=== PATIENT | female | born 1965 | race Caucasian/White ===

== ENCOUNTER 2016-04-30 14:49 | Emergency (ER) | payer BC ==
[~2016-04-30] VITALS: Ht 157.5 cm; Wt 64.5 kg
[2016-04-30 14:50] VITALS: BP 131/89; PULSE 68; RESP 12; TEMP 97.9; O2SAT 96
[2016-04-30] MEDS ORDERED: SYNT88TA PO (16:31)
--- NOTE | 2016-04-30 16:41 | PD ---
HPI Chief Complaint: Headache Time Seen by Provider: 16:41 Travel History International Travel<30 days: No Contact w/Intl Traveler<30days: No Traveled to known affect area: No History of Present Illness HPI 50-year-old female with history of hypothyroidism presents to emergency department for evaluation of an acute onset headache at 2 AM this morning during orgasm. She states that it started in the occipital aspect of her head and shot to the front. It was associated with nausea and vomiting. She states it was the worst headache of her life. She states she does not ever get headaches. Since that time she has had a lingering mild headache with mild nausea. No focal deficits or weakness. No chest tightness. No visual disturbances. She also reports some mild discomfort in her neck. She has no other symptoms to report. [facility] Past Medical History Thyroid Disease: Yes Tetanus Vaccination: > 5 Years Influenza Vaccination: Yes ?: Not Past Surgical History Abdominal Surgery: Yes (HERNIA) Gynecologic Surgery: Yes (HYSTERECTOMY) Hysterectomy: Yes (12/22) Tonsillectomy: Yes Social History Alcohol Use: No Tobacco Use: No Substance Use: No Allergies-Medications (Allergen,Severity, Reaction): Coded Allergies: No Known Allergies (Unverified , 04/30/16) Reported Meds & Prescriptions Reported Meds & Active Scripts Active Reported Synthroid (Levothyroxine Sodium) 88 Mcg Tab 88 Mcg PO DAILY Review of Systems Except as stated in HPI: all other systems reviewed are Neg Physical Exam Narrative GENERAL: Well-nourished female patient, in no acute distress SKIN: Warm and dry. HEAD: Atraumatic. Normocephalic. EYES: Pupils equal and round. No scleral icterus. No injection or drainage. ENT: No nasal bleeding or discharge. Mucous membranes pink and moist. NECK: Trachea midline. No JVD. CARDIOVASCULAR: Regular rate and rhythm. No murmur appreciated. RESPIRATORY: No accessory muscle use. Clear to auscultation. Breath sounds equal bilaterally. GASTROINTESTINAL: Abdomen soft, non-tender, nondistended. Hepatic and splenic margins not palpable. MUSCULOSKELETAL: No obvious deformities. No clubbing. No cyanosis. No edema. NEUROLOGICAL: Awake and alert. No obvious cranial nerve deficits. Motor grossly within normal limits. Normal speech. PSYCHIATRIC: Appropriate mood and affect; insight and judgment normal. Data Data Last Documented VS Vital Signs Date Time Temp Pulse Resp B/P Pulse Ox O2 Delivery O2 Flow Rate FiO2 04/30/16 17:24 67 18 145/81 99 Room Air 04/30/16 14:50 97.9 Orders Complete Blood Count With Diff (04/30/16 16:40) Basic Metabolic Panel (Bmp) (04/30/16 16:40) Coag Profile (04/30/16 16:40) Ct Brain W/O Iv Contrast(Rout) (04/30/16 ) Lidocaine Pf 1% Inj (Xylocaine-Mpf 1% In (04/30/16 18:00) Csf Cell Count + Differential (04/30/16 18:06) Glucose, Csf (04/30/16 18:06) Total Protein, Csf (04/30/16 18:06) Csf Culture And Gram Stain (04/30/16 18:06) Cta Brain W Iv Contrast W 3d (04/30/16 ) Ed Urine Pregnancytest Poc (04/30/16 18:32) Labs Laboratory Tests Test 04/30/16 15:50 White Blood Count 6.4 TH/MM3 Red Blood Count 5.00 MIL/MM3 Hemoglobin 14.4 GM/DL Hematocrit 41.8 % Mean Corpuscular Volume 83.4 FL Mean Corpuscular Hemoglobin 28.7 PG Mean Corpuscular Hemoglobin 34.4 % Concent Red Cell Distribution Width 12.2 % Platelet Count 264 TH/MM3 Mean Platelet Volume 7.6 FL Neutrophils (%) (Auto) 52.2 % Lymphocytes (%) (Auto) 37.9 % Monocytes (%) (Auto) 7.0 % Eosinophils (%) (Auto) 2.3 % Basophils (%) (Auto) 0.6 % Neutrophils # (Auto) 3.4 TH/MM3 Lymphocytes # (Auto) 2.4 TH/MM3 Monocytes # (Auto) 0.5 TH/MM3 Eosinophils # (Auto) 0.1 TH/MM3 Basophils # (Auto) 0.0 TH/MM3 CBC Comment DIFF FINAL Differential Comment Prothrombin Time 10.6 SEC Prothromb Time International 1.0 RATIO Ratio Activated Partial 20.7 SEC Thromboplast Time Sodium Level 137 MEQ/L Potassium Level 4.3 MEQ/L Chloride Level 102 MEQ/L Carbon Dioxide Level 27.9 MEQ/L Anion Gap 7 MEQ/L Blood Urea Nitrogen 16 MG/DL Creatinine 0.77 MG/DL Estimat Glomerular Filtration 79 ML/MIN Rate Random Glucose 88 MG/DL Calcium Level 8.9 MG/DL MDM Medical Decision Making Medical Screen Exam Complete: Yes Emergency Medical Condition: Yes Medical Record Reviewed: Yes Differential Diagnosis Postcoital headache versus migraine with or without aura versus intracranial hemorrhage versus vasospasm Narrative Course 50-year-old female presents to emergency department for evaluation. Workup was initiated in triage. Once a medical bed becomes spell, patient will be transferred and care assumed by that provider. Condition: Stable Lynsey Akbar Apr 30, 2016 16:41
[2016-04-30 17:20] LABS: AUTOMATED NEUTROPHIL # 3.4 TH/MM3 (1.8-7.7); BASOPHIL % 0.6 % (0.0-2.0); EOSINOPHIL # 0.1 TH/MM3 (0-0.4); EOSINOPHIL % 2.3 % (0.0-4.0); HEMATOCRIT 41.8 % (35.0-46.0); HEMO FLAGS DIFF FINAL; LYMPH % 37.9 % (9.0-44.0); LYMPHOCYTE # 2.4 TH/MM3 (1.0-4.8); MEAN CELL VOLUME 83.4 FL (80.0-100.0); MEAN CORPUSCULAR HEMOGLOBIN 28.7 PG (27.0-34.0); MEAN CORPUSCULAR HGB CONC 34.4 % (32.0-36.0); NEUT % 52.2 % (16.0-70.0); PLATELET COUNT 264 TH/MM3 (150-450); RED CELL DISTRIBUTION WIDTH 12.2 % (11.6-17.2); WHITE BLOOD COUNT 6.4 TH/MM3 (4.0-11.0)
--- NOTE | 2016-04-30 17:20 | RADRPT ---
EXAM DATE/TIME: 04/30/2016 17:08 [facility] COMPARISON: No previous studies available for comparison. INDICATIONS : Headache, no trauma. RADIATION DOSE: 36.73 CTDIvol (mGy) MEDICAL HISTORY : Hernia, inguinal. SURGICAL HISTORY : Hysterectomy. ENCOUNTER: Initial ACUITY: 1 day PAIN SCALE: 10/10 LOCATION: cranial TECHNIQUE: Multiple contiguous axial images were obtained of the head. Using automated exposure control and adj ustment of the mA and/or kV according to patient size, radiation dose was kept as low as reasonably a chievable to obtain optimal diagnostic quality images. FINDINGS: CEREBRUM: The ventricles are normal for age. No evidence of midline shift, mass lesion, hemorrhage or acute in farction. No extra-axial fluid collections are seen. POSTERIOR FOSSA: The cerebellum and brainstem are intact. The 4th ventricle is midline. The cerebellopontine angle i s unremarkable. EXTRACRANIAL: The visualized portion of the orbits is intact. SKULL: The calvaria is intact. No evidence of skull fracture. CONCLUSION: Normal examination. Eze Mei Jr., MD on April 30, 2016 at 17:15 Board Certified Radiologist. This report was verified electronically.
[2016-04-30 17:24] VITALS: BP 145/81; PULSE 67; RESP 18; O2SAT 99
[2016-04-30 17:41] LABS: BICARBONATE 27.9 MEQ/L (21.0-32.0); POTASSIUM 4.3 MEQ/L (3.5-5.1)
[2016-04-30 17:51] LABS: APTT (PATIENT) 20.7 SEC (24.3-30.1); PROTHROMBIN TIME - PATIENT 10.6 SEC (9.8-11.6)
[2016-04-30] MEDS ORDERED: LIDOCAINE HCL 1% PF 30 ML VIAL INFIL ONE (18:00)
--- NOTE | 2016-04-30 18:48 | PD ---
Data Data Last Documented VS Vital Signs Date Time Temp Pulse Resp B/P Pulse Ox O2 Delivery O2 Flow Rate FiO2 04/30/16 17:24 67 18 145/81 99 Room Air 04/30/16 14:50 97.9 Orders Complete Blood Count With Diff (04/30/16 16:40) Basic Metabolic Panel (Bmp) (04/30/16 16:40) Coag Profile (04/30/16 16:40) Ct Brain W/O Iv Contrast(Rout) (04/30/16 ) Lidocaine Pf 1% Inj (Xylocaine-Mpf 1% In (04/30/16 18:00) Csf Cell Count + Differential (04/30/16 18:06) Glucose, Csf (04/30/16 18:06) Total Protein, Csf (04/30/16 18:06) Csf Culture And Gram Stain (04/30/16 18:06) Cta Brain W Iv Contrast W 3d (04/30/16 ) Labs Laboratory Tests Test 04/30/16 15:50 White Blood Count 6.4 TH/MM3 Red Blood Count 5.00 MIL/MM3 Hemoglobin 14.4 GM/DL Hematocrit 41.8 % Mean Corpuscular Volume 83.4 FL Mean Corpuscular Hemoglobin 28.7 PG Mean Corpuscular Hemoglobin 34.4 % Concent Red Cell Distribution Width 12.2 % Platelet Count 264 TH/MM3 Mean Platelet Volume 7.6 FL Neutrophils (%) (Auto) 52.2 % Lymphocytes (%) (Auto) 37.9 % Monocytes (%) (Auto) 7.0 % Eosinophils (%) (Auto) 2.3 % Basophils (%) (Auto) 0.6 % Neutrophils # (Auto) 3.4 TH/MM3 Lymphocytes # (Auto) 2.4 TH/MM3 Monocytes # (Auto) 0.5 TH/MM3 Eosinophils # (Auto) 0.1 TH/MM3 Basophils # (Auto) 0.0 TH/MM3 CBC Comment DIFF FINAL Differential Comment Prothrombin Time 10.6 SEC Prothromb Time International 1.0 RATIO Ratio Activated Partial 20.7 SEC Thromboplast Time Sodium Level 137 MEQ/L Potassium Level 4.3 MEQ/L Chloride Level 102 MEQ/L Carbon Dioxide Level 27.9 MEQ/L Anion Gap 7 MEQ/L Blood Urea Nitrogen 16 MG/DL Creatinine 0.77 MG/DL Estimat Glomerular Filtration 79 ML/MIN Rate Random Glucose 88 MG/DL Calcium Level 8.9 MG/DL [facility] Supervised Visit with TL: Yes Narrative Course The history, exam, and medical decision-making in the associated midlevel provider note were completed with my assistance. I reviewed and agree with the findings presented. I attest that I had a [id number] encounter with the patient on the same day, and personally performed and documented my assessment and findings in the medical record. *My assessment and Findings: This is a 50-year-old female who presents to the emergency department with a sudden onset post-coital headache that occurred at 2 AM. She has a normal neurologic exam. Concern is for subarachnoid hemorrhage. CT of the head was obtained which was reassuring. I did attempt a lumbar puncture but the patient was quite anxious and ended up having some blood from the needle and was concerned the tap would end up traumatic and the patient wasn't tolerating the procedure well. We elected to perform a CTA of the brain. Patient was signed out to Dr. Arias who will review CTA results and disposition patient appropriately. Procedures Procedure Narrative LUMBAR PUNCTURE: The patient was placed in the left lateral decubitus position. The lumbar area of the back was prepped with Betadine and sterilely draped. The L3 -- L4 interspace was infiltrated with 1% lidocaine plain. Number 20 gauge LP needle was placed in the interspace. Patient was quite anxious during the procedure. Ultimately some blood came out of the needle which appeared to be venous. I elected to discontinue the procedure. Condition: Stable Libertad Mccoy MD Apr 30, 2016 18:48
--- NOTE | 2016-04-30 19:08 | PD ---
Physical Exam Date Seen by Provider: Apr 30, 2016 Time Seen by Provider: 19:06 Narrative The patient is a 50-year-old female was initially evaluated by [facility]. Please refer to the initial history, physical, diagnostic evaluation, and treatment modality plan. The patient signed out at 7 PM and CTA pending for possible aneurysm after acute headache. Data Data Last Documented VS Vital Signs Date Time Temp Pulse Resp B/P Pulse Ox O2 Delivery O2 Flow Rate FiO2 04/30/16 19:36 62 18 138/62 99 Room Air 04/30/16 14:50 97.9 Orders Complete Blood Count With Diff (04/30/16 16:40) Basic Metabolic Panel (Bmp) (04/30/16 16:40) Coag Profile (04/30/16 16:40) Ct Brain W/O Iv Contrast(Rout) (04/30/16 ) Lidocaine Pf 1% Inj (Xylocaine-Mpf 1% In (04/30/16 18:00) Csf Cell Count + Differential (04/30/16 18:06) Glucose, Csf (04/30/16 18:06) Total Protein, Csf (04/30/16 18:06) Csf Culture And Gram Stain (04/30/16 18:06) Cta Brain W Iv Contrast W 3d (04/30/16 ) Iohexol 350 Inj (Omnipaque 350 Inj) (04/30/16 19:49) Labs Laboratory Tests Test 04/30/16 15:50 White Blood Count 6.4 TH/MM3 Red Blood Count 5.00 MIL/MM3 Hemoglobin 14.4 GM/DL Hematocrit 41.8 % Mean Corpuscular Volume 83.4 FL Mean Corpuscular Hemoglobin 28.7 PG Mean Corpuscular Hemoglobin 34.4 % Concent Red Cell Distribution Width 12.2 % Platelet Count 264 TH/MM3 Mean Platelet Volume 7.6 FL Neutrophils (%) (Auto) 52.2 % Lymphocytes (%) (Auto) 37.9 % Monocytes (%) (Auto) 7.0 % Eosinophils (%) (Auto) 2.3 % Basophils (%) (Auto) 0.6 % Neutrophils # (Auto) 3.4 TH/MM3 Lymphocytes # (Auto) 2.4 TH/MM3 Monocytes # (Auto) 0.5 TH/MM3 Eosinophils # (Auto) 0.1 TH/MM3 Basophils # (Auto) 0.0 TH/MM3 CBC Comment DIFF FINAL Differential Comment Prothrombin Time 10.6 SEC Prothromb Time International 1.0 RATIO Ratio Activated Partial 20.7 SEC Thromboplast Time Sodium Level 137 MEQ/L Potassium Level 4.3 MEQ/L Chloride Level 102 MEQ/L Carbon Dioxide Level 27.9 MEQ/L Anion Gap 7 MEQ/L Blood Urea Nitrogen 16 MG/DL Creatinine 0.77 MG/DL Estimat Glomerular Filtration 79 ML/MIN Rate Random Glucose 88 MG/DL Calcium Level 8.9 MG/DL [facility] Medical Record Reviewed: Yes Supervised Visit with TL: No Interpretation(s) Last Impressions Head CTA 04/30/16 0000 Signed Impressions: Service Date/Time: Saturday, April 30, 2016 18:48 - CONCLUSION: Normal intracranial arteries. Mansoor Altman MD Head CT 04/30/16 0000 Signed Impressions: Service Date/Time: Saturday, April 30, 2016 17:08 - CONCLUSION: Normal examination. Eze Mei Jr., MD Laboratory Tests Test 04/30/16 15:50 White Blood Count 6.4 TH/MM3 Red Blood Count 5.00 MIL/MM3 Hemoglobin 14.4 GM/DL Hematocrit 41.8 % Mean Corpuscular Volume 83.4 FL Mean Corpuscular Hemoglobin 28.7 PG Mean Corpuscular Hemoglobin 34.4 % Concent Red Cell Distribution Width 12.2 % Platelet Count 264 TH/MM3 Mean Platelet Volume 7.6 FL Neutrophils (%) (Auto) 52.2 % Lymphocytes (%) (Auto) 37.9 % Monocytes (%) (Auto) 7.0 % Eosinophils (%) (Auto) 2.3 % Basophils (%) (Auto) 0.6 % Neutrophils # (Auto) 3.4 TH/MM3 Lymphocytes # (Auto) 2.4 TH/MM3 Monocytes # (Auto) 0.5 TH/MM3 Eosinophils # (Auto) 0.1 TH/MM3 Basophils # (Auto) 0.0 TH/MM3 CBC Comment DIFF FINAL Differential Comment Prothrombin Time 10.6 SEC Prothromb Time International 1.0 RATIO Ratio Activated Partial 20.7 SEC Thromboplast Time Sodium Level 137 MEQ/L Potassium Level 4.3 MEQ/L Chloride Level 102 MEQ/L Carbon Dioxide Level 27.9 MEQ/L Anion Gap 7 MEQ/L Blood Urea Nitrogen 16 MG/DL Creatinine 0.77 MG/DL Estimat Glomerular Filtration 79 ML/MIN Rate Random Glucose 88 MG/DL Calcium Level 8.9 MG/DL Differential Diagnosis Differential diagnosis includes subarachnoid hemorrhage, intracranial hemorrhage , tension headache, cluster headache, migraine, postcoital headache. Narrative Course The patient was initially evaluated by Dr. Mccoy, please refer to the initial history, physical, diagnostic evaluation, and treatment modality plan. The patient signed out at 7 PM the CTA pending for possible aneurysm. Apparently patient had a postcoital headache, CT was negative, patient is unable to have a lumbar puncture secondary to anxiety and requested CTA be performed instead of lumbar puncture. Laboratory evaluation was unremarkable. CTA was negative, no evidence of aneurysm. The patient was reevaluated at 8:15 PM, her headache had resolved. The patient had no meningeal signs, most likely be subarachnoid hemorrhage. The patient does feel well enough to go home and would prefer to be discharged. The patient will be provided a copy of her CT results is advised to return if symptoms worsen or progress. Diagnosis Primary Impression: Cephalgia Qualified Code: R51 - Acute nonintractable headache, unspecified headache type Patient Instructions: General Instructions Additional Instruction: Please provide the patient a copy of her CT results and CTA results at discharge as well as laboratory results at discharge. Fioricet as needed. Return if symptoms worsen or progress. Med/Other Pt SpecificInfo: Prescription(s) given Scripts Iuddiusrnr-Bwlhrccdfqnjn-Ptlivzpb (Fioricet)50-300-40 Mg Cap1 Cap PO Q4H PRN ( HEADACHE) #15 CAP Ref 0 Prov:Leopoldo Arias MD 04/30/16 Disposition: DISCHARGE HOME Condition: Stable Leopoldo Arias MD Apr 30, 2016 19:07
[2016-04-30 19:36] VITALS: BP 138/62; PULSE 62; RESP 18; O2SAT 99
[2016-04-30] MEDS ORDERED: IOHEXOL 350 MG/ML 10 ML VIAL (for RAD DIAG) IV ONE (19:49)
--- NOTE | 2016-04-30 20:00 | RADRPT ---
EXAM DATE/TIME: 04/30/2016 18:48 [facility] COMPARISON: No previous studies available for comparison. INDICATIONS : Severe pain to back of head during physical excertion,now having Pressure and nausea. IV CONTRAST: 75 cc Omnipaque 350 (iohexol) IV RADIATION DOSE: 14.19 CTDIvol (mGy) MEDICAL HISTORY : None SURGICAL HISTORY : Hysterectomy. hernia ENCOUNTER: Initial ACUITY: 1 day PAIN SCALE: 2/10 LOCATION: Cta head TECHNIQUE: Volumetric scanning was performed using a multi-row detector CT scanner. The data was post processed with a variety of visualization algorithms including full volume maximum intensity projection, multi -planar sliding thin slab reformation, curved planar reformation, and surface rendering techniques. Using automated exposure control and adjustment of the mA and/or kV according to patient size, radiat ion dose was kept as low as reasonably achievable to obtain optimal diagnostic quality images. FINDINGS: There is excellent visualization of the major intracranial arteries out to the second-order branch ve ssels. There is no evidence for aneurysm, vessel truncation or stenosis, and no evidence for vascula r malformation. CONCLUSION: Normal intracranial arteries. Mansoor Altman MD on April 30, 2016 at 19:57 Board Certified Radiologist. This report was verified electronically.
[2016-04-30] MEDS ORDERED: BUTA1CAP PO (20:19)
== END 2016-04-30 21:27 | disposition home or self-care (01) ==
LOC: NEPE 14:49
DX: R51 Headache (principal); E03.9 Hypothyroidism, unspecified
CPT/HCPCS: 62270; 70450; 70496; 80048; 85025; 85610; 85730; 99284; Q9967